=== PATIENT | female | born 1940 | race Caucasian/White ===

== ENCOUNTER 2016-07-29 11:18 | Inpatient (IN) | payer MEDICARE, OTHER ==
[~2016-07-29] VITALS: Ht 154.9 cm; Wt 56.7 kg
[2016-07-29 11:27] VITALS: BP 159/81
[2016-07-29] MEDS ORDERED: Morphine Sulfate 2mg/ml Inj IVP ONE (11:30)
--- NOTE | 2016-07-29 11:35 | Emergency Room Report ---
History of Present Illness General Chief Complaint: Generalized Weakness Source: Patient, EMS Present Illness HPI Patient brought in by ambulance for pain in her left arm, as well as some alterations in consciousness. The patient is somewhat confused though alert and pleasant. Apparently her will be following up, is following the ambulance here. Patient presents after a fall this morning approximate 7 AM. States that she did hit her left side, left upper extremity, as well as her head. No loss of consciousness or seizure activity reported by EMS. Patient was able to read the scene, when paramedics were called. She also reports falling yesterday but cannot give specific details to this. She is somewhat unaware of her medications as well as past medical history. She is pleasantly confused. Complaining of pain distinctly in the right upper humeral, shoulder region of the left arm, with any movement. Not complaining of pain in the elbow wrist or hand on the left, not complaining of numbness tingling or weakness in the left upper remedy. No vomiting no chills no should chest pain reported. Allergies: Coded Allergies: No Known Allergies (Unverified , 07/29/16) Patient History Limited by: medical condition - patient is somewhat confused Past Medical History: see triage record, unable to obtain Social History: Denies: alcohol use, drug use, smoking Last Menstrual Period: N/A Now: No Immunizations: UTD Reviewed Nursing Documentation: PMH: Agreed Nursing Documentation-[facility] Past Medical History: No History, Except For Hx Cardiac Problems: Yes Hx Hypertension: Yes Review of Systems Constitutional: Denies: fever, malaise, weakness Cardiovascular: Denies: edema Gastrointestinal: Denies: abdominal pain, constipation, diarrhea, nausea, vomiting Musculoskeletal: Reports: joint pain, joint swelling, muscle pain, muscle stiffness Skin: Reports: other - reports easy bruising All Other Systems: limited - patient is somewhat confused Physical Exam Vital Signs Date Time Temp Pulse Resp B/P Pulse Ox O2 Delivery O2 Flow Rate FiO2 07/29/16 11:19 97.7 122 15 159/81 100 Room Air Sp02 EP Interpretation: reviewed, abnormal - tachycardia General Appearance: alert, mild distress, thin Head: atraumatic ENT: dry mucus membranes Neck: supple, thyroid normal, no meningismus, no bony tend Respiratory: lungs clear, normal breath sounds, no rhonchi, no respiratory distress, no retraction, no wheezing Cardiovascular #1: no edema, no murmur, tachycardia Cardiovascular #2: 2+ carotid (R), 2+ carotid (L) Gastrointestinal: soft, no mass, no hernia Genitourinary: no CVA tenderness Musculoskeletal: back normal, swelling - left upper extremity, tender - palpation of left shoulder, left upper extremity Neurologic: alert, responsive, hospital insurance clerk III-XII nml as tested, normal gait Psychiatric: anxious Skin: other - significant old-appearig bruises on both hands, as well as significant bruising on the anterior upper left shoulder., abrasions - over to aspects of the right hand Medical Decision Making Diagnostic Impression: Primary Impression: Urinary tract infection Additional Impressions: Episode of generalized weakness Fall Shoulder pain, acute Shoulder pain, left Confusion and disorientation Arm pain, left Contusion Contusion of left arm Humeral surgical neck fracture ER Course Elderly woman presenting with a fall from home. Also second fallen 2 days. She 's never been at this facility and she is too confused to give me a full history. Currently waiting for the to present. My initial assessment is that the patient is confused after a fall and this represents risk for [employer] injury. She also has bruising and many locations particular the left arm which could represent a significant contusion and/or fracture in the shoulder and arm. Pain control, IV fluids, monitoring has been started on the patient. Patient be sent for blood testing as well as CTs of the head, as well as extremities primarily chest and upper left arm. No other obvious injuries on the other extremities. But she is a high-risk patient with multiple falls and definite injury and I think regardless of initial workup patient will likely need stabilization during hospitalization, observation. Look for signs of anemia signs of stroke signs of infection to include urine and chest evaluation. Patient noted to have fracture of the upper left surgical neck humerus. As far as laboratory exam there has been some delayed or radiology testing. Her urinalysis is back and it does show significant indices suggestive of infection. She's received IV ceftriaxone, IV fluids. As well as some pain control for the obvious fracture. As well as sling for the left arm. At this time jeyson winston requires inpatient admission due to her infection leading to falls and obvious injury. Chemistry and blood tests are still pending and is to be signed out to the oncoming emergency physician. Are also pending to have admitting physician at this time. Laboratory Tests Test 07/29/16 12:15 07/29/16 12:50 Urine Color Pale yellow Urine Appearance Clear Urine pH 6.5 (4.5-8.0) Urine Specific [place] 1.010 (1.005-1.035) Urine Protein 1+ (NEGATIVE) H Urine Glucose (UA) Negative (NEGATIVE) Urine Ketones Negative (NEGATIVE) Urine Occult Blood 2+ (NEGATIVE) H Urine Nitrite Positive (NEGATIVE) H Urine Bilirubin Negative (NEGATIVE) Urine Urobilinogen Normal MG/DL (0.0-1.0) Urine Leukocyte Esterase 3+ (NEGATIVE) H Urine RBC 2-4 /HPF (0 - 2) H Urine WBC 10-15 /HPF (0 - 2) H Urine Squamous Epithelial Cells Few /LPF (NONE/OCC) Urine Bacteria Moderate /HPF (NONE) H Troponin I < 0.30 ng/mL (<=0.30) Urine Opiates Screen Negative (NEGATIVE) Urine Barbiturates Screen Negative (NEGATIVE) Phencyclidine (PCP) Screen Negative (NEGATIVE) Urine Amphetamines Screen Negative (NEGATIVE) Urine Benzodiazepines Screen Negative (NEGATIVE) Urine Cocaine Screen Negative (NEGATIVE) Urine Marijuana (THC) Screen Negative (NEGATIVE) Prothrombin Time 10.7 SEC (9.30-11.50) Prothromb Time International Ratio 1.1 (0.9-1.1) Activated Partial Thromboplast Time 31 SEC (23-33) Lab Results Impression Signs of urinary tract infection, pending chemistry and CBC at this time EKG Diagnostic Results EKG Time: 11:35 EP Interpretation: rate 97 Rate: normal Rhythm: NSR ST Segments: no acute changes Other Impression low voltage ASA given to the pt in ED: No Rhythm Strip Diag. Results Rhythm Strip Time: 13:59 EP Interpretation: yes Rate: 87 Rhythm: NSR, no PVC's, no ectopy Chest X-Ray Diagnostic Results Time: 14:00 EP Interpretation: Yes Findings: no consolidation, no effusion, no pneumothorax, no acute cardiopulmonary disease, other - fracture of upper humerous Number of Views: 1 Other X-Ray Diagnostic Results Other X-Ray Diagnostic Results : X-Ray Ordered: shoulder and humerous Date: Jul 29, 2016 Time: 14:00 EP Interpretation: Yes Findings: other - fracture of thal neck of the humerus Number of Views: 4 Reevaluation Time: 14:01 Last Vital Signs Date Time Temp Pulse Resp B/P Pulse Ox O2 Delivery O2 Flow Rate FiO2 07/29/16 11:19 97.7 122 15 159/81 100 Room Air Status: improved Disposition: ADMITTED INPATIENT Admit Decision Time: 14:01 Condition: Serious Cedrick Tobias MD Jul 29, 2016 11:35
[2016-07-29 12:36] LABS: APPEARANCE,URINE CLEAR; KETONES,URINE NEGATIVE (NEGATIVE); LEUKOCYTE ESTERASE ,URINE 3+ (NEGATIVE); NITRITE,URINE POSITIVE (NEGATIVE); PH,URINE 6.5 (4.5-8.0); PROTEIN,URINE 1+ (NEGATIVE); UROBILINOGEN,URINE NORMAL MG/DL (0.0-1.0)
[2016-07-29 12:55] LABS: TROPONIN I < 0.30 ng/mL (<=0.30)
[2016-07-29] MEDS ORDERED: cefTRIAXone 1 GM in NS 55 ML IVPB ONE (13:00)
[2016-07-29 13:16] LABS: BACTERIA,URINE MODERATE /HPF; SQUAMOUS EPITHELIAL CELL,UR FEW /LPF (NONE/OCC)
[2016-07-29 13:19] LABS: INR 1.1 (0.9-1.1); PROTHROMBIN TIME 10.7 SEC (9.30-11.50)
[2016-07-29 14:02] VITALS: BP 132/83
[2016-07-29 14:09] LABS: MEAN CORPUSCULAR HEMOGLOBIN 35.3 PG (27.0-31.0); MEAN CORPUSCULAR HGB CONC 30.9 G/DL (32.0-36.0); MEAN CORPUSCULAR VOLUME 114 FL (80-99); PLATELET COUNT 134 K/UL (150-450); RED BLOOD COUNT 2.75 M/UL (4.20-5.40); RED CELL DISTRIBUTION WIDTH 13.7 % (11.6-14.8); WHITE BLOOD COUNT 9.5 K/UL (4.8-10.8)
[2016-07-29 14:24] LABS: ALANINE AMINOTRANSFERASE 10 U/L (3-33); ANION GAP 18 (5-15); ASPARTATE AMINO TRANSFERASE 22 U/L (5-40); CALCIUM 8.4 mg/dL (8.6-10.2); CARBON DIOXIDE 20 mEQ/L (20-30); CHLORIDE 102 mEQ/L (98-107); CREATININE 0.7 mg/dL (0.5-0.9); HEMOLYSIS 26; POTASSIUM 4.6 mEQ/L (3.4-4.9); SODIUM 140 mEQ/L (135-145); TOTAL PROTEIN 5.7 g/dL (6.6-8.7)
[2016-07-29 14:31] LABS: BAND NEUTROPHILS % (MANUAL) 0 % (0-8); BASOPHILS % (MANUAL) 0 % (0-2); EOSINOPHILS % (MANUAL) 0 % (0-3); LYMPHOCYTES % (MANUAL) 16 % (20-45); NEUTROPHILS % (MANUAL) 65 % (45-75); PLATELET ESTIMATE DECREASED; PLATELET MORPHOLOGY NORMAL; TOTAL CELLS COUNTED 100
[2016-07-29 14:32] LABS: HYPOCHROMASIA 1+; MACROCYTES 1+
[2016-07-29 14:34] LABS: CKMB < 1.5 ng/mL (< 3.8)
[2016-07-29] MEDS ORDERED: Morphine Sulfate 4mg/ml Inj IVP ONE ×2 (15:30→19:15)
[2016-07-29 15:42] VITALS: BP 124/62
[2016-07-29] MEDS ORDERED: Norco 5mg/325mg tab ORAL ONE (20:45)
[2016-07-29 20:58] VITALS: BP 116/62
[2016-07-29 23:12] VITALS: BP 125/57
[2016-07-30] VITALS (7 sets, daily range): BP systolic 124–136; BP diastolic 54–80
[2016-07-30] MEDS ORDERED: UNOBMED (00:24)
[2016-07-30] MEDS: Morphine Sulfate 2mg/ml Inj IVP PRN ×4 (02:28→19:58)
[2016-07-30] MEDS: Heparin 5000 units/ml inj SUBQ SCH ×2 (08:37→19:57)
--- NOTE | 2016-07-30 09:14 | Diagnostic Imaging Report ---
Indication: Head trauma Technique: Contiguous 5 mm thick transaxial imaging of the head obtained in a Siemens Sensation [address] scanner. Soft tissue and bone windows generated. Total Dose length Product (DLP): [address] Dose Index Volume (CTDIvol): 70.38 mGy Comparison: none Findings: There is mild prominence of the ventricles, basal cisterns, and cerebral sulci consistent with atrophy. Mild, nonspecific, white matter hypoattenuation is noted throughout the brain consistent with chronic small vessel disease. There is no midline shift, edema, acute hemorrhage, mass effect, or abnormal extra-axial fluid collections. Bones and extra osseous soft tissues are unremarkable. Impression: No acute intracranial bleed, mass effect or edema. Mild atrophy of the brain. Nonspecific white matter hypoattenuation probably due to chronic small vessel disease. The CT scanner at [facility] is accredited by the [employer] and the scans are performed using protocols designed to limit radiation exposure to as low as reasonably achievable to attain images of sufficient resolution adequate for diagnostic evaluation.
[2016-07-30] MEDS ORDERED: LEVAQUIN500 MG ORAL (09:19)
[2016-07-30] MEDS ORDERED: Morphine Sulfate IVP (09:19)
--- NOTE | 2016-07-30 09:49 | Diagnostic Imaging Report ---
Indication: Left shoulder trauma Technique: Continuous helical transaxial imaging of the left shoulder was obtained. Coronal and Sagittal 2-D reformats were also obtained. Study obtained in a Siemens sensation [address] Total Dose length Product (DLP): [address] Dose Index Volume (CTDIvol): 7 mGy Comparison: None Findings: There is acute nondisplaced fracture of the surgical neck of the left humerus. There is involvement of the greater tuberosity. There is slight impaction. The bones are osteopenic. The glenoid, remainder of the scapula and the visualized part of the left clavicle appear intact. There is no malalignment identified. Some soft tissue swelling is present. There is some misregistration due to breathing motion with regard to the ribs. There is no definite fracture of the ribs though this is not well violated. The aorta is moderately calcified. Impression: Acute fracture of the left humeral neck at the surgical neck. Involvement of the greater tuberosity noted.
--- NOTE | 2016-07-30 10:27 | Diagnostic Imaging Report ---
Indication: pain Findings: 3 views of the left hand were obtained. No fracture is seen. There are degenerative changes characterized by joint space irregularity, sclerosis and osteophytes involving several regions. The most severe is at the base of the thumb. Impression: Osteoarthritis
--- NOTE | 2016-07-30 10:28 | Diagnostic Imaging Report ---
Indication: Pain Findings: 2 views of the left humerus were obtained. There is a fracture involving the humeral neck. The bones are osteopenic. Impression: Limited plain film evaluation demonstrating a left humeral neck fracture. Please refer to the CT report
--- NOTE | 2016-07-30 10:28 | Diagnostic Imaging Report ---
Indication: Pain Findings: 3 views of the left shoulder were obtained. There is a fracture of the humeral neck involving the greater tuberosity. There is some impaction. Bones are PA. Impression: Acute fracture of the left humeral neck
--- NOTE | 2016-07-30 10:29 | Diagnostic Imaging Report ---
Indication: Chest Pain Comparison: None A single view chest radiograph was obtained. Findings: There is basilar atelectasis, mild in degree. Bones are osteopenic. There is an old clavicle fracture on the right. Heart size is borderline enlarged. Surgical clip projected over the left chest. Left humeral neck fracture noted. Impression: No acute findings in the chest
[2016-07-30] MEDS: Lisinopril 20mg tab ORAL SCH (17:44)
--- NOTE | 2016-07-30 19:27 | History and Physical Report ---
DATE OF ADMISSION: 07/29/2016 HISTORY OF PRESENT ILLNESS: This is a 76-year-old female, who was brought to the emergency room by ambulance with pain in the left arm. Apparently the patient reported she had fallen at home earlier yesterday. She states she has had a left side of her body as well as head. There was no loss of consciousness or seizure activity. The patient was seen and worked up in the emergency room. She was found to have a fracture of the right upper humerus. Overnight, the patient seen by Dr. Mcnulty who recommends conservative management and sling only. PAST MEDICAL HISTORY: The patient unable to provide any history regarding her list of medications. I recall she has been admitted to an outside hospital and we will attempt to obtain records from there. The patient is confused, unable to answer question but states she lives at home. REVIEW OF SYSTEMS: Somewhat unreliable. PHYSICAL EXAMINATION: GENERAL: Reveals elderly female. VITAL SIGNS: Blood pressure is 120/70, heart rate 82, respirations 18, O2 saturation 98% room air, temperature is 97.5. HEENT: Unremarkable. RESPIRATORY: Clear breath sounds bilaterally with normal heart sounds. ABDOMEN: Soft. EXTREMITIES: Left arm is in sling. There is no edema. LABORATORY AND DIAGNOSTIC DATA: Hemoglobin 9.7, otherwise normal CBC and BMP. ProBNP is 1566. Coags are negative. Toxicology is negative. Urinalysis is notable for multiple WBCs on urinalysis. IMPRESSION: 1. Probable urinary tract infection. 2. Left arm fracture. DISCUSSION: We will admit to the hospital. We will start Rocephin however will transition Levaquin p.o. we will arrange discharge pending, discussed with Dr. Mcnulty. Raj Michel M.D. DR: Fabiana JOB#: [id number] CC:
--- NOTE | 2016-07-30 22:37 | Consultation ---
DATE OF CONSULTATION: REQUESTING PHYSICIAN: Raj Michel MD CHIEF COMPLAINT: Left shoulder pain. HISTORY OF PRESENT ILLNESS: The patient is a 76-year-old right-handed dominant female who sustained mechanical fall. She subsequently was brought to the emergency room. Had imaging studies done, which showed a fracture of the left humerus. Orthopedic consultation was obtained for further care and recommendation. The patient denies numbness to the left arm. No other complaints to the lower extremities or legs. PAST MEDICAL HISTORY: Reviewed from the intake chart. PAST SURGICAL HISTORY: Reviewed from the intake chart. MEDICATIONS: Reviewed per the intake chart. PHYSICAL EXAMINATION: There is mild ecchymosis along the lateral aspect of left humerus with lot of swelling and no fracture blisters. Radial and ulnar pulses are +2. Full range of motion of left elbow, wrist, and fingers. IMAGING STUDIES: Two views left shoulder reviewed showed greater tuberosity fracture, which is minimally displaced. CT scan of the left shoulder was reviewed and showed mildly displaced greater tuberosity fracture. ASSESSMENT: Left minimally displaced greater tuberosity fracture. DISCUSSION: At this point, given that is minimally displaced less than 1 centimeter, what I recommend is conservative treatment. We recommended continued the sling immobilization. She will begin active range of motion of the left elbow, wrist, and fingers. She is not weightbearing on the left arm. I would like to see her back in two weeks' time with repeat imaging studies at the office. At that point, depending on how it looks, we may begin some gentle Codman exercises for the left shoulder. I discussed that it would take up to minimally six weeks for the fracture to heal, usually by 6 weeks from a more aggressive outpatient physical therapy to get range of motion strength back. She may have some residual weakness with certain activities, but it should be able to cover from a functional point of view. Theodore Mcnulty M.D. DR: RODRI JOB#: [id number] CC: Raj Michel M.D.; Fax#: [phone]
[2016-07-31] VITALS: BP 126/84
[2016-07-31] MEDS: Morphine Sulfate 2mg/ml Inj IVP PRN ×5 (00:23→19:52)
[2016-07-31 04:00] VITALS: BP 133/76
[2016-07-31 08:00] VITALS: BP_SYST 122; BP_SYST 137; BP_DIAS 66; BP_DIAS 68
--- NOTE | 2016-07-31 08:44 | Pulmonology Progress Note ---
Assessment/Plan Assessment/Plan 1. Probable urinary tract infection. 2. Left arm fracture. DISCUSSION: Discharge today ; awaiting placement Pain control Antibiotics empirically for UTI. Subjective Interval Events: None; awaiting placement Constitutional: Reports: no symptoms HEENT: Repors: no symptoms Respiratory: Reports: no symptoms Cardiovascular: Reports: no symptoms Gastrointestinal/Abdominal: Reports: no symptoms Allergies: Coded Allergies: No Known Allergies (Unverified , 07/29/16) Objective Last 24 Hour Vital Signs Date Time Temp Pulse Resp B/P Pulse Ox O2 Delivery O2 Flow Rate FiO2 07/31/16 04:00 98.4 81 18 133/76 99 Room Air 07/31/16 00:00 98.1 85 18 126/84 95 Room Air 07/30/16 20:00 98.2 92 19 129/80 98 Room Air 07/30/16 17:44 136/75 07/30/16 16:16 98.1 84 18 136/75 98 Nasal Cannula 2.0 07/30/16 14:51 97.0 07/30/16 12:00 97.0 90 20 125/69 98 Nasal Cannula 2.0 Intake and Output 07/30/16 07/31/16 19:00 07:00 Intake Total 370 ml 360 ml Output Total 500 ml 1350 ml Balance -130 ml -990 ml Intake Oral 370 ml 360 ml Output Urine Total 950 ml Other 500 ml 400 ml # Voids 2 # Bowel Movements 1 General Appearance: no acute distress HEENT: normocephalic Respiratory/Chest: chest wall non-tender, lungs clear Cardiovascular: normal peripheral pulses, normal rate Abdomen: normal bowel sounds, soft, non tender Microbiology Date/Time Source Procedure Growth Status 07/29/16 12:15 Urine,Clean Catch Urine Culture - Preliminary Gram Negative Bacillus 1 Resulted Current Medications Medications (Trade) Dose Ordered Sig/Sarai Route PRN Reason Start Time Stop Time Status Last Admin Dose Admin Furosemide (Lasix) 20 mg Q24H ORAL 07/30/16 16:30 08/01/16 16:31 07/30/16 17:44 Gabapentin (Neurontin) 300 mg DAILY ORAL 07/30/16 16:30 08/29/16 16:29 07/30/16 17:44 Heparin Sodium (Porcine) (Heparin 5000 units/ml) 5,000 units EVERY 12 HOURS SUBQ 07/30/16 09:00 08/29/16 08:59 Levofloxacin (Levaquin) 500 mg DAILY ORAL 07/31/16 09:00 08/07/16 08:59 Lisinopril (Prinivil) 20 mg DAILY ORAL 07/30/16 16:30 08/29/16 16:29 07/30/16 17:44 Morphine Sulfate (Morphine Sulfate) 2 mg Q4H PRN IVP For Pain 07/30/16 20:30 08/06/16 20:29 07/31/16 06:56 Pantoprazole (Protonix) 40 mg DAILY ORAL 07/31/16 09:00 08/30/16 08:59 Raj Michel MD Jul 31, 2016 08:43
[2016-07-31] MEDS: Lisinopril 20mg tab ORAL SCH (08:52)
[2016-07-31] MEDS: Levofloxacin 500mg tab ORAL SCH (08:52)
[2016-07-31] MEDS: Heparin 5000 units/ml inj SUBQ SCH ×2 (08:53→19:51)
[2016-07-31 12:00] VITALS: BP 124/77
[2016-07-31 16:37] VITALS: BP 109/67
[2016-07-31 20:14] VITALS: BP 89/53
[2016-08-01] VITALS: BP 96/61
[2016-08-01 03:55] VITALS: BP 116/70
[2016-08-01] MEDS: Morphine Sulfate 2mg/ml Inj IVP PRN ×5 (04:09→21:19)
[2016-08-01 08:00] VITALS: BP 103/75
[2016-08-01] MEDS: Lisinopril 20mg tab ORAL SCH (08:50)
[2016-08-01] MEDS: Levofloxacin 500mg tab ORAL SCH (08:50)
[2016-08-01] MEDS: Heparin 5000 units/ml inj SUBQ SCH ×2 (08:53→21:00)
--- NOTE | 2016-08-01 09:27 | Pulmonology Progress Note ---
Assessment/Plan Assessment/Plan 1. ESBL E.coli urinary tract infection. 2. Left arm fracture. DISCUSSION: Discharge today ; awaiting placement Pain control Macrobid for UTI. Subjective Interval Events: No change Constitutional: Reports: no symptoms HEENT: Repors: no symptoms Respiratory: Reports: no symptoms Cardiovascular: Reports: no symptoms Gastrointestinal/Abdominal: Reports: no symptoms Genitourinary: Reports: no symptoms Allergies: Coded Allergies: No Known Allergies (Unverified , 07/29/16) Objective Last 24 Hour Vital Signs Date Time Temp Pulse Resp B/P Pulse Ox O2 Delivery O2 Flow Rate FiO2 08/01/16 08:50 103/69 08/01/16 08:43 98.6 08/01/16 08:00 97.9 95 18 103/75 95 Room Air 08/01/16 03:55 98.6 95 20 116/70 94 Nasal Cannula 2.0 08/01/16 00:00 97.5 99 20 96/61 99 Room Air 07/31/16 20:14 98.2 100 19 89/53 91 Simple Mask 2.0 07/31/16 16:37 98.1 103 18 109/67 92 Room Air 07/31/16 12:00 98.8 96 19 124/77 94 Room Air Intake and Output 07/31/16 08/01/16 19:00 07:00 Intake Total 380 ml 75 ml Output Total 375 ml 900 ml Balance 5 ml -825 ml Intake Oral 380 ml 75 ml Other 375 ml 900 ml # Bowel Movements 1 General Appearance: no acute distress HEENT: normocephalic, atraumatic Respiratory/Chest: chest wall non-tender, lungs clear Cardiovascular: normal peripheral pulses, normal rate Abdomen: normal bowel sounds, soft, non tender Microbiology Date/Time Source Procedure Growth Status 07/29/16 12:15 Urine,Clean Catch Urine Culture - Final Escherichia Coli - Esbl Complete Current Medications Medications (Trade) Dose Ordered Sig/Sarai Route PRN Reason Start Time Stop Time Status Last Admin Dose Admin Furosemide (Lasix) 20 mg Q24H ORAL 07/30/16 16:30 08/01/16 16:31 07/31/16 16:45 Gabapentin (Neurontin) 300 mg DAILY ORAL 07/30/16 16:30 08/29/16 16:29 08/01/16 08:50 Heparin Sodium (Porcine) (Heparin 5000 units/ml) 5,000 units EVERY 12 HOURS SUBQ 07/30/16 09:00 08/29/16 08:59 Levofloxacin (Levaquin) 500 mg DAILY ORAL 07/31/16 09:00 08/07/16 08:59 08/01/16 08:50 Lisinopril (Prinivil) 20 mg DAILY ORAL 07/30/16 16:30 08/29/16 16:29 08/01/16 08:50 Morphine Sulfate (Morphine Sulfate) 2 mg Q4H PRN IVP For Pain 07/30/16 20:30 08/06/16 20:29 08/01/16 08:13 Pantoprazole (Protonix) 40 mg DAILY ORAL 07/31/16 09:00 08/30/16 08:59 08/01/16 08:50 Raj Michel MD Aug 01, 2016 09:27
[2016-08-01] MEDS ORDERED: LISINOPRIL20 MG ORAL (09:30)
[2016-08-01] MEDS ORDERED: NEURONTIN300 MG ORAL (09:30)
[2016-08-01] MEDS ORDERED: PROTONIX40 MG ORAL (09:30)
[2016-08-01] MEDS ORDERED: Morphine Sulfate IVP (09:30)
[2016-08-01] MEDS ORDERED: FUROSEMIDE20 M1 ORAL (09:30)
[2016-08-01] MEDS ORDERED: NITROFURANTOIN100 M2 ORAL (09:30)
[2016-08-01 12:01] VITALS: BP 111/61
--- NOTE | 2016-08-01 13:47 | Cardiology Report ---
APPROVED REPORT EKG Measurement Heart [id number] MA [id number] Sinus rhythm with occasional, and consecutive premature ventricular complexes Low voltage QRS Cannot rule out Anterior infarct, age undetermined Abnormal ECG
[2016-08-01 16:03] VITALS: BP 96/54
[2016-08-01 20:00] VITALS: BP 100/56
[2016-08-02] VITALS: BP 99/62
[2016-08-02] MEDS: Morphine Sulfate 2mg/ml Inj IVP PRN ×3 (02:10→10:12)
[2016-08-02 04:00] VITALS: BP 102/51
[2016-08-02 08:00] VITALS: BP 102/67
[2016-08-02] MEDS: Heparin 5000 units/ml inj SUBQ SCH (09:00)
[2016-08-02] MEDS: Levofloxacin 500mg tab ORAL SCH (09:07)
[2016-08-02] MEDS: Lisinopril 20mg tab ORAL SCH (09:07)
[2016-08-02] MEDS ORDERED: NORCO 5-325 TA1 EAC1 ORAL (10:02)
[2016-08-02] MEDS ORDERED: NUCYNTA50 MG PO (10:03)
[2016-08-02 12:00] VITALS: BP 132/98
--- NOTE | 2016-08-03 14:13 | Discharge Summary ---
Discharge Summary Hospital Course Date of Admission Jul 29, 2016 at 14:01 Date of Discharge Aug 02, 2016 at 12:45 Admitting Diagnosis FALL, ARM INJURY, CONFUSION HPI Coty Thornton is a 76 year old female who was admitted on Jul 29, 2016 at 14:01 for Fall/Arm Injury/Confusion Hospital Course [id number] Discharge Discharge Disposition Patient was discharged to home with Discharge Diagnoses: Demetrice Castro NP Aug 03, 2016 14:13
--- NOTE | 2016-08-03 23:08 | Discharge Summary 2 SIG ---
DATE OF ADMISSION: 07/29/2016 DATE OF DISCHARGE: 08/02/2016 LENS INSERTER: Theodore Mcnulty M.D. BRIEF HOSPITAL COURSE: The patient is a 76-year-old female who was brought to the emergency room by ambulance secondary to pain in the left arm. Apparently, the patient reported that she had fallen at home the day prior and states that she had pain on left side of her body and head. There was no loss of consciousness or seizure activity. Evaluation at ED showed fracture of the left humerus. Urinalysis was notable for multiple WBC. She was started on Rocephin. Orthopedic consult done. Two views of the left shoulder were reviewed showed greater tuberosity fracture, which is minimally displaced. CT scan of the left shoulder was also reviewed and showed mildly displaced greater tuberosity fracture. Given the patient has minimally displaced less than 170 cm, recommended conservative treatment and to continue with sling immobilization. She will begin active range of motion of the left elbow, wrist, and fingers and advised to be non-weightbearing on the left arm. She was advised to see orthopedic back in 2 weeks for repeat imaging at the office and at that point, depending on how it looks, may begin some gentle Codman exercises for the left shoulder. Discussed that it would take up to minimally 6 weeks for the fracture to heal, usually by 6 weeks from a more aggressive outpatient physical therapy to get range of motion strength back. She may have some residual weakness with certain activities, but it should be able recover from a functional point of view. She was given pain control and physical therapy. Urine culture showed growth of ESBL E. coli. She was eventually discharged. FINAL DIAGNOSES: 1. ESBL Escherichia coli urinary tract infection. 2. Acute minimally displaced left greater tuberosity fracture. DISPOSITION: The patient was recommended SNF placement, however, the patient refused. The patient does not want to go to any SNF and was okay with home with home health. Raj Michel M.D. I have been assigned to dictate discharge summary on this account and I was not involved in the patient's management. Demetrice Castro N.P. DR: DANIELLE JOB#: [id number] CC: [email or web address]
== END 2016-08-02 12:45 | disposition home or self-care (01) | DRG 690 ==
LOC: EDBD 11:18 → EMR 12:10 → 4E 14:01 → EDBEDREQSVC 14:10 → EDBEDREQ 23:48 → 3E 07-30 02:01
DX: N39.0 Urinary tract infection, site not specified (principal); S42.252A Displaced fracture of greater tuberosity of left humerus, initial encounter for closed fracture; B96.20 Unspecified Escherichia coli [E. coli] as the cause of diseases classified elsewhere; W19.XXXA Unspecified fall, initial encounter; Z91.81 History of falling; Y92.019 Unspecified place in single-family (private) house as the place of occurrence of the external cause
CPT/HCPCS: 36415; 70450; 71010; 80053; 80300; 81003; 82550; 82553; 83880; 84484; 85007; 85025; 85610; 85730; 86850; 86900; 86901; 87086; 87181; 93005

== ENCOUNTER 2016-10-20 22:32 | Emergency (ER) | payer OTHER ==
[~2016-10-20] VITALS: Ht 157.5 cm; Wt 49.9 kg
[~2016-10-20 22:32] MED LIST: FUROSEMIDE20 M1 ORAL; LEVAQUIN500 MG ORAL; LISINOPRIL20 MG ORAL; Morphine Sulfate IVP; NEURONTIN300 MG ORAL; NITROFURANTOIN100 M2 ORAL; NORCO 5-325 TA1 EAC1 ORAL; NUCYNTA50 MG PO; PROTONIX40 MG ORAL; UNOBMED
[2016-10-20 22:40] VITALS: BP 103/57
--- NOTE | 2016-10-20 23:04 | Emergency Room Report ---
History of Present Illness General Chief Complaint: Alcohol Intoxication Source: Patient, EMS Present Illness HPI EMS was called by the . The patient has recent diagnosis of Alzheimer' s. They were both drinking alcohol earlier in he states that he can no longer take care of her. She denies all symptoms. Apparently she's been eating well. There is a history of COPD or CHF. Allergies: Coded Allergies: No Known Allergies (Unverified , 07/29/16) Patient History Limited by: medical condition Past Medical History: see triage record Social History: Reports: alcohol use Social History Narrative Now: No Reviewed Nursing Documentation: PMH: Agreed, PSxH: Agreed Nursing Documentation-PMH Hx Cardiac Problems: Yes Hx Hypertension: Yes Review of Systems All Other Systems: limited Physical Exam Vital Signs Date Time Temp Pulse Resp B/P Pulse Ox O2 Delivery O2 Flow Rate FiO2 10/20/16 22:26 97.9 70 15 103/57 95 Room Air Sp02 EP Interpretation: reviewed, normal General Appearance: well appearing, no apparent distress, alert, Chronically Ill Head: normocephalic, atraumatic Eyes: bilateral eye PERRL, bilateral eye Scleral Injection, bilateral eye other - arcus ENT: moist mucus membranes Neck: supple Respiratory: lungs clear, normal breath sounds Cardiovascular #1: regular rate, rhythm Cardiovascular #2: 2+ radial (R) Gastrointestinal: normal inspection, normal bowel sounds, non tender, no mass, non-distended Musculoskeletal: back normal, normal range of motion Neurologic: alert, motor strength/tone normal, DTRs symmetric, sensory intact, oriented - X1 - name Psychiatric: depressed affect - one word answers Skin: normal inspection, warm/dry Medical Decision Making Diagnostic Impression: Primary Impression: UTI (urinary tract infection) Qualified Codes: N30.00 - Acute cystitis without hematuria Additional Impressions: Acute alcoholic intoxication Qualified Codes: F10.129 - Alcohol abuse with intoxication, unspecified Failure to thrive Qualified Codes: R62.7 - Adult failure to thrive ER Course The patient presents with recent onset of Alzheimer's and alcohol ingestion with her allegedly being unable to care for her. Differential includes alcohol intoxication, electrolyte abnormalities, stroke, occult infection amongst others. Visual evaluated with EKG, chest x-ray, CT and labs. Labs are significant for elevated blood alcohol, urinary tract infection. CT and chest x-ray are basically unremarkable. There is a questionable hilar process on the right-hand side on the x-ray. The patient is in no distress. Discussion with Dr. Sanchez centered on transferring the patient to [facility]. The patient is felt to be stable for transfer. Laboratory Tests Test 10/20/16 23:02 White Blood Count 8.5 K/UL (4.8-10.8) Red Blood Count 2.80 M/UL (4.20-5.40) L Hemoglobin 9.8 G/DL (12.0-16.0) L Hematocrit 30.8 % (37.0-47.0) L Mean Corpuscular Volume 110 FL (80-99) H Mean Corpuscular Hemoglobin 35.1 PG (27.0-31.0) H Mean Corpuscular Hemoglobin Concent 31.9 G/DL (32.0-36.0) L Red Cell Distribution Width 17.7 % (11.6-14.8) H Platelet Count 140 K/UL (150-450) L Mean Platelet Volume 8.9 FL (6.5-10.1) Neutrophils (%) (Auto) 51.5 % (45.0-75.0) Lymphocytes (%) (Auto) 25.4 % (20.0-45.0) Monocytes (%) (Auto) 18.5 % (1.0-10.0) H Eosinophils (%) (Auto) 3.5 % (0.0-3.0) H Basophils (%) (Auto) 1.1 % (0.0-2.0) Urine Color Pale yellow Urine Appearance Slightly cloudy Urine pH 6.5 (4.5-8.0) Urine Specific [place] 1.010 (1.005-1.035) Urine Protein 2+ (NEGATIVE) H Urine Glucose (UA) Negative (NEGATIVE) Urine Ketones Negative (NEGATIVE) Urine Occult Blood 2+ (NEGATIVE) H Urine Nitrite Negative (NEGATIVE) Urine Bilirubin Negative (NEGATIVE) Urine Urobilinogen Normal MG/DL (0.0-1.0) Urine Leukocyte Esterase 3+ (NEGATIVE) H Urine RBC 2-4 /HPF (0 - 2) H Urine WBC 60-80 /HPF (0 - 2) H Urine Squamous Epithelial Cells Few /LPF (NONE/OCC) Urine Bacteria Many /HPF (NONE) H Sodium Level 138 mEQ/L (135-145) Potassium Level 2.9 mEQ/L (3.4-4.9) L Chloride Level 101 mEQ/L (98-107) Carbon Dioxide Level 17 mEQ/L (20-30) L Anion Gap 20 (5-15) H Blood Urea Nitrogen 13 mg/dL (7-23) Creatinine 0.9 mg/dL (0.5-0.9) Estimate Glomerular Filtration Rate mL/min (>60) Glucose Level 125 mg/dL (74-106) H Calcium Level 8.2 mg/dL (8.6-10.2) L Total Bilirubin < 0.2 mg/dL (0.0-1.2) Aspartate Amino Transferase (AST) 21 U/L (5-40) Alanine Aminotransferase (ALT) 8 U/L (3-33) Alkaline Phosphatase 96 U/L (35-104) Ammonia 12 umol/L (11-51) Troponin I < 0.30 ng/mL (<=0.30) Pro-B-Type Natriuretic Peptide 4068 pg/mL (0-450) H Total Protein 5.5 g/dL (6.6-8.7) L Albumin 3.0 g/dL (3.5-5.2) L Globulin 2.5 g/dL Albumin/Globulin Ratio 1.2 (1.0-2.7) Thyroid Stimulating Hormone (TSH) 0.653 uIU/mL (0.300-4.500) Salicylates Level < 1 mg/dL (10-30) L Urine Opiates Screen Positive (NEGATIVE) H Acetaminophen Level < 10 ug/mL (10-30) L Urine Barbiturates Screen Negative (NEGATIVE) Phencyclidine (PCP) Screen Negative (NEGATIVE) Urine Amphetamines Screen Negative (NEGATIVE) Urine Benzodiazepines Screen Negative (NEGATIVE) Urine Cocaine Screen Negative (NEGATIVE) Urine Marijuana (THC) Screen Negative (NEGATIVE) Serum Alcohol 253 mg/dL EKG Diagnostic Results Rate: normal Rhythm: NSR ST Segments: no acute changes - 1st degree AV block Rhythm Strip Diag. Results EP Interpretation: yes Rhythm: NSR, other - fusion complexes, 1st degree AVB, rate 91 Chest X-Ray Diagnostic Results EP Interpretation: Yes Findings: no effusion, no pneumothorax, other - R hilar process Number of Views: 1 Last Vital Signs Date Time Temp Pulse Resp B/P Pulse Ox O2 Delivery O2 Flow Rate FiO2 4/16/17 03:36 98.0 99 18 109/48 94 Room Air Status: improved Disposition: ADMITTED INPATIENT Condition: Serious Juvenal Dumont M.D. Oct 20, 2016 23:04
[2016-10-20 23:27] LABS: BASOPHILS % (AUTO) 1.1 % (0.0-2.0); EOSINOPHILS % (AUTO) 3.5 % (0.0-3.0); LYMPHOCYTES % (AUTO) 25.4 % (20.0-45.0); MEAN CORPUSCULAR HEMOGLOBIN 35.1 PG (27.0-31.0); MEAN CORPUSCULAR HGB CONC 31.9 G/DL (32.0-36.0); MEAN CORPUSCULAR VOLUME 110 FL (80-99); MEAN PLATELET VOLUME 8.9 FL (6.5-10.1); MONOCYTES % (AUTO) 18.5 % (1.0-10.0); NEUTROPHILS % (AUTO) 51.5 % (45.0-75.0); PLATELET COUNT 140 K/UL (150-450); RED CELL DISTRIBUTION WIDTH 17.7 % (11.6-14.8); WHITE BLOOD COUNT 8.5 K/UL (4.8-10.8)
[2016-10-20 23:36] LABS: APPEARANCE,URINE SLIGHTLY CLOUDY; KETONES,URINE NEGATIVE (NEGATIVE); LEUKOCYTE ESTERASE ,URINE 3+ (NEGATIVE); NITRITE,URINE NEGATIVE (NEGATIVE); PH,URINE 6.5 (4.5-8.0); PROTEIN,URINE 2+ (NEGATIVE); UROBILINOGEN,URINE NORMAL MG/DL (0.0-1.0)
[2016-10-20 23:48] LABS: TROPONIN I < 0.30 ng/mL (<=0.30)
[2016-10-20 23:49] LABS: ACETAMINOPHEN < 10 ug/mL (10-30); ALANINE AMINOTRANSFERASE 8 U/L (3-33); ALBUMIN/GLOBULIN RATIO 1.2 (1.0-2.7); ALCOHOL 253 mg/dL; ANION GAP 20 (5-15); ASPARTATE AMINO TRANSFERASE 21 U/L (5-40); CALCIUM 8.2 mg/dL (8.6-10.2); CARBON DIOXIDE 17 mEQ/L (20-30); CHLORIDE 101 mEQ/L (98-107); CREATININE 0.9 mg/dL (0.5-0.9); HEMOLYSIS 13; POTASSIUM 2.9 mEQ/L (3.4-4.9); SODIUM 138 mEQ/L (135-145); TOTAL PROTEIN 5.5 g/dL (6.6-8.7)
[2016-10-20 23:50] LABS: AMMONIA 12 umol/L (11-51)
[2016-10-20 23:57] LABS: BACTERIA,URINE MANY /HPF; SQUAMOUS EPITHELIAL CELL,UR FEW /LPF (NONE/OCC); WBC,URINE 60-80 /HPF (0 - 2)
[2016-10-21] LABS: THYROID STIMULATING HORMONE 0.653 uIU/mL (0.300-4.500)
[2016-10-21] MEDS ORDERED: cefTRIAXone 1 GM in NS 55 ML IVPB ONE (00:15)
[2016-10-21 00:40] VITALS: BP 95/56
[2016-10-21 02:40] VITALS: BP 109/48
[2016-10-21 03:36] VITALS: BP 109/48
--- NOTE | 2016-10-21 08:39 | Diagnostic Imaging Report ---
Indication: ALOC Technique: Continuous helical CT scanning of the head was performed without intravenous contrast material. Axial and coronal 5 mm sections were generated. Dose: Total Dose Length Product - DLP [address] Dose Index - CTDIvol(s) 70.38 mGy. Comparison: 07/29/2016 Findings: Prominence of the ventricular system and cortical sulci. Periventricular low density is present. There is no shift of midline structures. No abnormal extra-axial fluid collections are noted. There is no evidence of intracerebral bleeding. No other abnormal high or low density areas are noted within the brain. Impression: Atrophy. Chronic small vessel white matter ischemic change. No acute abnormality. The above report is concordant with preliminary reading by [facility] . The CT scanner at [facility] is accredited by the [employer] and the scans are performed using protocols designed to limit radiation exposure to as low as reasonably achievable to attain images of sufficient resolution adequate for diagnostic evaluation.
--- NOTE | 2016-10-21 09:22 | Diagnostic Imaging Report ---
Indication: Cough Technique: XRAY CHEST 1 V Comparison:07/29/2016 Findings: There is some chronic interstitial change in the right base. This is unchanged from previous study. The heart is normal in size. Clips are noted in the left side of the chest. No acute pulmonary infiltrates. No pleural fluid. Impression: No acute abnormality. No change from prior exam.
--- NOTE | 2016-10-24 00:25 | Cardiology Report ---
APPROVED REPORT EKG Measurement Heart [id number] Sinus rhythm with sinus arrhythmia with 1st degree AV block with occasional premature ventricular complexes and fusion comple Low voltage QRS Septal infarct, age undetermined Abnormal ECG
== END 2016-10-21 03:36 | disposition short-term general hospital (02) ==
LOC: EDBD 22:32 → EMR 23:46
DX: F10.129 Alcohol abuse with intoxication, unspecified (principal); N30.00 Acute cystitis without hematuria; R62.7 Adult failure to thrive; I10 Essential (primary) hypertension; G30.9 Alzheimer's disease, unspecified; F02.80 Dementia in other diseases classified elsewhere, unspecified severity, without behavioral disturbance, psychotic disturbance, mood disturbance, and anxiety
CPT/HCPCS: 36415; 70450; 71010; 80053; 80300; 81003; 82140; 83880; 84443; 84484; 85025; 87086; 87181; 93005; 99285; G0480; J0696; 80329